=== PATIENT | male | born 1965 | race Caucasian/White ===

== ENCOUNTER 2023-08-10 12:44 | Emergency (ER) | payer BC ==
[~2023-08-10] VITALS: Ht 175.3 cm; Wt 68.0 kg
[2023-08-10 13:05] VITALS: TEMP 98.2; O2SAT 97
[2023-08-10] MEDS ORDERED: KETOROLAC 15MG/ML VIAL IV ONE (13:15)
[2023-08-10 14:55] LABS: ALANINE AMINOTRANSFERASE 11 IU/L (10-49); ALBUMIN 4.7 g/dL (3.2-4.8); ASPARTATE AMINOTRANSFERASE 51 IU/L (<34); BILIRUBIN TOTAL 0.6 mg/dL (0.1-1.0); CARBON DIOXIDE 24 mEq/L (21-32); CHLORIDE 96 mEq/L (98-107); CREATININE 0.7 mg/dL (0.6-1.3); GLUCOSE 104 mg/dL (70-105); POTASSIUM 4.3 mEq/L (3.5-5.1); PROTEIN TOTAL 7.3 g/dL (6.0-8.3); SODIUM 131 mEq/L (136-145); UREA NITROGEN BLOOD 23 mg/dL (9-23)
[2023-08-10 14:59] LABS: BASOPHILS % 0.4 % (0.0-2.0); EOSINOPHILS % 0.6 % (0.0-5.0); HEMATOCRIT. 38.4 % (42.0-52.0); HEMOGLOBIN. 12.7 g/dL (14.0-18.0); LYMPHOCYTES % 8.9 % (20.0-50.0); MEAN CORPUSCULAR VOLUME 81.7 fL (80.0-94.0); MEAN PLATELET VOLUME 6.8 fl (7.4-10.4); MONOCYTES % 5.7 % (2.0-8.0); NEUTROPHILS % 84.4 % (40.0-76.0); PLATELET 364 x1000/uL (130-400); RED CELL DISTRIBUTION WIDTH 14.7 % (11.6-14.6); WHITE BLOOD COUNT 14.3 x1000/uL (4.5-11.0)
[2023-08-10] MEDS ORDERED: IOHEXOL-300 100 ML BOTTLE ONE (18:41)
[2023-08-10] MEDS ORDERED: PIPERACILLIN/TAZO 3.375G/50ML 50 ML IV SCH (20:00)
[2023-08-10 21:15] VITALS: BP 138/86; PULSE 90; RESP 18
== END 2023-08-10 21:17 | disposition home or self-care (01) ==
LOC: ER 13:10
DX: R19.09 Other intra-abdominal and pelvic swelling, mass and lump (principal); K65.1 Peritoneal abscess; E11.9 Type 2 diabetes mellitus without complications; E78.00 Pure hypercholesterolemia, unspecified; Z98.890 Other specified postprocedural states
CPT/HCPCS: 80053; 85025; 36415; 74177; 96374; 99285; Q9967; J1885; Z7610